=== PATIENT | female | born 1985 | race Two or more races ===

== ENCOUNTER 2018-09-14 17:55 | Emergency (ER) | payer MEDICAID ==
[~2018-09-14] VITALS: Ht 154.9 cm; Wt 61.2 kg
[2018-09-14] MEDS ORDERED: ONDANSETRON HCL/PF 4 MG/2 ML VIAL IVP ONE (18:30)
[2018-09-14] MEDS ORDERED: ONDANSETRON HCL/PF 4 MG/2 ML VIAL ONE (18:40)
--- NOTE | 2018-09-14 18:41 | NUR ---
BIB DAUGHTER C/O DIZZINESS, "ROOM IS SPINNING AROUND". ALERT AND ORIENTED X 4, VERBALLY RESPONSIVE. ON ROOM AIR, BREATHING EVENLY AND UNLABORED. CONNECTED ON THE MONITOR, AND PULSE OX. ON GOWN. KEPT COMFORTABLE. WILL CONTINUE TO MONITOR ACCORDINGLY.
[2018-09-14 18:49] LABS: BASOPHILS % (AUTO) 0.2 % (0.0-2.0); HEMATOCRIT 42 % (33-45); HEMOGLOBIN 14.2 g/dL (11.5-14.8); LYMPHOCYTES # (AUTO) 1.3 /CMM (0.8-4.8); LYMPHOCYTES % (AUTO) 11.7 % (20.0-44.0); MEAN CORPUSCULAR HGB CONC 34 g/dl (31.0-36.0); MEAN CORPUSCULAR VOLUME 90 fL (82-100); MONOCYTES # (AUTO) 0.2 /CMM (0.1-1.30); MONOCYTES % (AUTO) 2.1 % (2.0-12.0); NEUTROPHILS # (AUTO) 9.5 /CMM (1.8-8.9); PLATELET COUNT (AUTO) 258 /CMM (150-450); RED BLOOD CELL COUNT(AUTO) 4.67 MIL/uL (4.0-5.2); WHITE BLOOD COUNT (AUTO) 11.1 K/uL (4.3-11.0)
--- NOTE | 2018-09-14 18:57 | NUR ---
URINE COLLECTED AND SENT TO LAB.
[2018-09-14 19:00] LABS: CALCIUM, SERUM 8.7 mg/dL (8.5-10.1); CREATININE 0.9 mg/dL (0.6-1.3); POTASSIUM 3.9 mmol/L (3.5-5.1)
--- NOTE | 2018-09-14 19:00 | NUR ---
patient taken for ct scan.
--- NOTE | 2018-09-14 19:09 | NUR ---
report given to rickey BENSON for dara.
--- NOTE | 2018-09-14 19:10 | NUR ---
patient came back from ct.
--- NOTE | 2018-09-14 19:19 | NUR ---
received endorsement from KELLEY Arroyo. will continue with pt's dara.
[2018-09-14] MEDS ORDERED: MECLIZINE HCL 12.5 MG TABLET ONE (20:29)
[2018-09-14] MEDS ORDERED: MECLIZINE HCL 12.5 MG TABLET PO ONE (20:30)
--- NOTE | 2018-09-14 20:34 | NUR ---
Patient discharged to home in stable condition. Written and verbal after care instructions given. Patient verbalizes understanding of instruction. Patient's daughter is at bedside with pt, translated in mohawk. Pt left facility on foot with steady gait. No s/s of acute distress or sob noted. Pt's is outside to pick them up. IV access removed and secured with gauze and tape. No signs of bleeding noted. all ordered meds given.
[2018-09-14 20:37] VITALS: BP 139/81
== END 2018-09-14 20:38 | disposition home or self-care (01) ==
LOC: ER 18:03
DX: R42 Dizziness and giddiness (principal); I10 Essential (primary) hypertension; R00.0 Tachycardia, unspecified; R94.31 Abnormal electrocardiogram [ECG] [EKG]
CPT/HCPCS: 36415; 70450; 80048; 84703; 85025; 93005; 96374; 99284; A4606; J2405; J8597; Z7610